=== PATIENT | female | born 1955 | race African-American/Black ===

== ENCOUNTER 2020-09-11 10:17 | Emergency (ER) | payer MEDICARE ==
[2020-09-11] MEDS ORDERED: Ketorolac Tromethamine 30 MG/ML VIAL ONE (10:40)
--- NOTE | 2020-09-11 17:39 | CT ---
CT OF THE LUMBAR SPINE 09/11/20 Comparison is made with plain films of the lumbar spine dated 08/20/20. Comparing those with the scou t view today shows that the compression fracture of the L1 vertebral body has flattened further. It i s reduced in height anteriorly now by about 50%. No new fractures were seen otherwise at other levels . There are no areas of bony destruction. Mild concentric bulging of the L4-L5 and L5-S1 discs are no marisol. There does not appear to be significant central canal stenosis at any level. No foraminal stenos is of concern was found. Facet joints look remarkably good for age. IMPRESSION: Anterior compression of L1 vertebral body that has compressed slightly more since the 08/20 study. Findings discussed with Dr. Oconnor at 07/25 on 09/11/20. POS: HOME
== END 2020-09-11 11:38 | disposition home or self-care (01) ==
LOC: BURERS 10:17
DX: S32.019A Unspecified fracture of first lumbar vertebra, initial encounter for closed fracture (principal); K21.9 Gastro-esophageal reflux disease without esophagitis; I10 Essential (primary) hypertension; G47.30 Sleep apnea, unspecified; E78.5 Hyperlipidemia, unspecified; F17.220 Nicotine dependence, chewing tobacco, uncomplicated; Z79.899 Other long term (current) drug therapy; W01.0XXA Fall on same level from slipping, tripping and stumbling without subsequent striking against object, initial encounter
CPT/HCPCS: 72131; 96372; J1885

== ENCOUNTER 2020-12-27 11:33 | Emergency (ER) | payer MEDICARE ==
[2020-12-27 12:18] LABS: #Eosinphils 0.1 thou/uL (0.0-0.7); #Lymphocytes 1.3 thou/uL (1.20-3.40); #Monocytes 0.6 thou/uL (0.11-0.59); #Neutrophils 2.9 thou/uL (1.40-6.50); %Basophils 0.5 % (0.0-1.0); %Eosinophils 1.9 % (0.0-10.0); %Lymphocytes 26.3 % (21.0-51.0); %Monocytes 11.7 % (0.0-10.0); %Neutrophils 59.6 % (42.0-75.0); Hemoglobin 12.2 g/dL (12.0-16.0); Mean Corpuscular HGB CONC 31.2 g/dL (32.0-36.0); Mean Platelet Volume 7.5 fL (7.4-10.4); Platelet Count 257 thou/uL (130-400); RBC Distribution Width 16.8 % (11.5-14.5); Red Blood Cell (RBC) Count 3.68 mill/uL (4.20-5.40); White Blood Cell (WBC) Count 4.9 thou/uL (4.8-10.8)
[2020-12-27 12:19] LABS: MDiff Complete? YES
[2020-12-27 12:30] LABS: ALT (SGPT) 15 U/L (8-55); AST (SGOT) 37 U/L (5-34); Alkaline Phosphatase 94 U/L (40-110); Anion Gap 16 mmol/L (10-20); BUN (Urea Nitrogen) 14 mg/dL (9.8-20.1); Bilirubin, Total 0.6 mg/dL (0.2-1.2); Calc. Creatinine Clearance 0 mL/min (70-130); Calcium 10.2 mg/dL (7.8-10.44); Carbon Dioxide 25 mmol/L (23-31); Chloride 106 mmol/L (98-107); Globulin 3.5 g/dL (2.4-3.5); Glucose 100 mg/dL (80-115); Magnesium 1.7 mg/dL (1.6-2.6); Potassium 3.4 mmol/L (3.5-5.1); Protein, Total 7.5 g/dL (5.8-8.1); Sodium 144 mmol/L (136-145)
[2020-12-27 12:31] LABS: Acetaminophen Less than 6.0 mcg/mL (10.0-30.0); Alcohol Less than 10 mg/dL (Less than 10); Salicylate Less than 8.0 mg/dL (15.0-30.0)
[2020-12-27 12:54] LABS: Bilirubin Small (Negative); Blood, Urine Negative (Negative); Clarity Cloudy (Clear); Glucose, Urine (Dipstick) Negative (Negative); Ketone, Urine Trace mg/dL (Negative); Leukocyte Negative (Negative); Nitrite Positive (Negative); Protein, Urine (Dipstick) Trace mg/dL (Neg-Trace); pH, Urine 5.5 (5.0-9.0)
[2020-12-27 12:57] LABS: Bacteria/HPF 4+ HPF (None Seen); RBC/HPF 0-3 HPF (0-3); WBC/HPF 0-3 HPF (0-3)
[2020-12-27 13:03] LABS: Amphetamine Not Detected (NotDetected); Barbiturates Screen Not Detected (NotDetected); Benzodiazepine Screen Detected (NotDetected); Cocaine Metabolite Screen Not Detected (NotDetected); Medtox Control Line Valid? VALID (VALID); Methadone Not Detected (NotDetected); Methamphetamine Not Detected (NotDetected); Opiate Screen Not Detected (NotDetected); Oxycodone Screen Not Detected (NotDetected); Phencyclidine (PCP) Not Detected (NotDetected); THC/Cannabinoid Screen Not Detected (NotDetected); Tricyclic Screen Not Detected (NotDetected)
[2020-12-27] MEDS ORDERED: Nitrofurantoin Monohyd/M-Cryst 100 MG CAP ONE (13:28)
== END 2020-12-27 13:30 | disposition home or self-care (01) ==
LOC: BURERS 11:33
DX: N39.0 Urinary tract infection, site not specified (principal); K21.9 Gastro-esophageal reflux disease without esophagitis; E78.2 Mixed hyperlipidemia; I10 Essential (primary) hypertension; F17.220 Nicotine dependence, chewing tobacco, uncomplicated; Z79.899 Other long term (current) drug therapy
CPT/HCPCS: 36415; 71045; 80053; 80306; 80307; 81003; 81015; 83605; 83735; 84443; 84484; 85025; 87040; 87077; 87086; 87186; 93005; 94760

== ENCOUNTER 2021-03-14 08:28 | Emergency (ER) | payer MEDICARE ==
[2021-03-14 09:45] LABS: Bilirubin Negative (Negative); Blood, Urine Negative (Negative); Clarity Clear (Clear); Glucose, Urine (Dipstick) Negative (Negative); Ketone, Urine Negative (Negative); Leukocyte Negative (Negative); Nitrite Negative (Negative); Protein, Urine (Dipstick) Negative (Neg-Trace); Urobilinogen 0.2 mg/dL (Less than 2)
== END 2021-03-14 10:00 | disposition home or self-care (01) ==
LOC: BURERS 08:28
DX: S32.059A Unspecified fracture of fifth lumbar vertebra, initial encounter for closed fracture (principal); S32.019A Unspecified fracture of first lumbar vertebra, initial encounter for closed fracture; K21.9 Gastro-esophageal reflux disease without esophagitis; E78.2 Mixed hyperlipidemia; I10 Essential (primary) hypertension; F17.220 Nicotine dependence, chewing tobacco, uncomplicated; F17.290 Nicotine dependence, other tobacco product, uncomplicated; Z79.899 Other long term (current) drug therapy; Z79.82 Long term (current) use of aspirin; W18.30XA Fall on same level, unspecified, initial encounter
CPT/HCPCS: 72100; 81003

== ENCOUNTER 2021-04-22 10:16 | Outpatient (CLI) | payer MEDICARE | END 2021-04-22 10:17 | disposition home or self-care (01) | LOC: BURRAD 10:16 | PROVIDERS: ATTEND Surgery | DX: S32.059D Unspecified fracture of fifth lumbar vertebra, subsequent encounter for fracture with routine healing (principal); S32.019D Unspecified fracture of first lumbar vertebra, subsequent encounter for fracture with routine healing; K59.00 Constipation, unspecified | CPT/HCPCS: 72100 ==

== ENCOUNTER 2021-04-27 17:52 | Emergency (ER) | payer MEDICARE ==
[2021-04-27] MEDS ORDERED: Diazepam 10 MG/2 ML SYRINGE ONE ×5 (18:36→21:05)
[2021-04-27 18:47] LABS: #Eosinphils 0.1 thou/uL (0.0-0.7); #Lymphocytes 1.5 thou/uL (1.20-3.40); #Monocytes 0.7 thou/uL (0.11-0.59); #Neutrophils 6.3 thou/uL (1.40-6.50); %Basophils 0.5 % (0.0-1.0); %Eosinophils 0.6 % (0.0-10.0); %Lymphocytes 17.7 % (21.0-51.0); %Monocytes 7.6 % (0.0-10.0); %Neutrophils 73.6 % (42.0-75.0); Hemoglobin 12.7 g/dL (12.0-16.0); Mean Corpuscular HGB CONC 32.9 g/dL (32.0-36.0); Mean Corpuscular Hemoglobin 32.6 pg (27.0-31.0); Mean Corpuscular Volume 99.1 fL (78.0-98.0); Mean Platelet Volume 6.6 fL (7.4-10.4); Platelet Count 236 thou/uL (130-400); RBC Distribution Width 15.8 % (11.5-14.5); Red Blood Cell (RBC) Count 3.89 mill/uL (4.20-5.40); White Blood Cell (WBC) Count 8.6 thou/uL (4.8-10.8)
[2021-04-27 19:03] LABS: ALT (SGPT) 13 U/L (8-55); AST (SGOT) 17 U/L (5-34); Albumin 4.3 g/dL (3.4-4.8); Alkaline Phosphatase 82 U/L (40-110); Anion Gap 24 mmol/L (10-20); BUN (Urea Nitrogen) 10 mg/dL (9.8-20.1); Bilirubin, Total 0.6 mg/dL (0.2-1.2); Calc. Creatinine Clearance 0 mL/min (70-130); Calcium 9.7 mg/dL (7.8-10.44); Carbon Dioxide 20 mmol/L (23-31); Chloride 102 mmol/L (98-107); Globulin 3.9 g/dL (2.4-3.5); Glucose 104 mg/dL (80-115); Potassium 3.5 mmol/L (3.5-5.1); Protein, Total 8.2 g/dL (5.8-8.1); Sodium 142 mmol/L (136-145)
[2021-04-27 19:04] LABS: Acetaminophen Less than 6.0 mcg/mL (10.0-30.0); Alcohol Less than 10 mg/dL (Less than 10); Magnesium 1.4 mg/dL (1.6-2.6); Salicylate Less than 8.0 mg/dL (15.0-30.0)
[2021-04-27 19:06] LABS: Bilirubin Negative (Negative); Blood, Urine Negative (Negative); Clarity Clear (Clear); Glucose, Urine (Dipstick) Negative (Negative); Ketone, Urine Trace mg/dL (Negative); Leukocyte Negative (Negative); Nitrite Negative (Negative); Protein, Urine (Dipstick) Negative (Neg-Trace); Urobilinogen 0.2 mg/dL (Less than 2)
[2021-04-27] MEDS ORDERED: Folic Acid 1 MG TAB PO SCH (19:30)
[2021-04-27] MEDS ORDERED: Thiamine 100 MG TAB PO SCH (19:30)
[2021-04-27 19:47] LABS: Amphetamine Not Detected (NotDetected); Barbiturates Screen Not Detected (NotDetected); Benzodiazepine Screen Not Detected (NotDetected); Cocaine Metabolite Screen Not Detected (NotDetected); Methadone Not Detected (NotDetected); Methamphetamine Not Detected (NotDetected); Opiate Screen Not Detected (NotDetected); Oxycodone Screen Not Detected (NotDetected); Phencyclidine (PCP) Not Detected (NotDetected); THC/Cannabinoid Screen Not Detected (NotDetected); Tricyclic Screen Not Detected (NotDetected)
[2021-04-27 19:48] LABS: Medtox Control Line Valid? VALID (VALID)
== END 2021-04-27 21:25 | disposition short-term general hospital (02) ==
LOC: BURERS 17:52
DX: F10.239 Alcohol dependence with withdrawal, unspecified (principal); R00.0 Tachycardia, unspecified; I10 Essential (primary) hypertension; K21.9 Gastro-esophageal reflux disease without esophagitis; E78.5 Hyperlipidemia, unspecified; E78.00 Pure hypercholesterolemia, unspecified; G62.9 Polyneuropathy, unspecified; F17.220 Nicotine dependence, chewing tobacco, uncomplicated; Z79.899 Other long term (current) drug therapy
CPT/HCPCS: 80053; 80306; 80307; 81003; 83735; 85025; 93005; 96374; 96376; J3360

== ENCOUNTER 2021-06-05 09:57 | Outpatient (CLI) | payer MEDICARE | END 2021-06-05 09:58 | disposition home or self-care (01) | LOC: BURRAD 09:57 | PROVIDERS: ATTEND Surgery | DX: S32.059D Unspecified fracture of fifth lumbar vertebra, subsequent encounter for fracture with routine healing (principal); S32.019D Unspecified fracture of first lumbar vertebra, subsequent encounter for fracture with routine healing | CPT/HCPCS: 72100 ==

== ENCOUNTER 2022-01-26 15:44 | Emergency (ER) | payer MEDICARE ==
[2022-01-26] MEDS ORDERED: Iopamidol 370 76% 100 ML VIAL FS ONE (15:45)
[2022-01-26] MEDS ORDERED: Ondansetron PF 4 MG/2 ML Vial ONE (16:29)
[2022-01-26] MEDS ORDERED: Pantoprazole 40 MG VIAL ONE (16:29)
[2022-01-26 16:38] LABS: #Lymphocytes 0.6 thou/uL (1.20-3.40); #Monocytes 0.3 thou/uL (0.11-0.59); #Neutrophils 6.3 thou/uL (1.40-6.50); %Basophils 0.3 % (0.0-1.0); %Lymphocytes 8.4 % (21.0-51.0); %Monocytes 3.8 % (0.0-10.0); %Neutrophils 87.5 % (42.0-75.0); Hemoglobin 11.7 g/dL (12.0-16.0); MDiff Complete? YES; Mean Corpuscular HGB CONC 33.7 g/dL (32.0-36.0); Mean Corpuscular Hemoglobin 34.5 pg (27.0-31.0); Mean Platelet Volume 5.6 fL (7.4-10.4); Platelet Count 232 thou/uL (130-400); White Blood Cell (WBC) Count 7.2 thou/uL (4.8-10.8)
[2022-01-26 16:44] LABS: Bilirubin Moderate (Negative); Blood, Urine Negative (Negative); Clarity Cloudy (Clear); Glucose, Urine (Dipstick) Negative (Negative); Ketone, Urine Trace mg/dL (Negative); Leukocyte Negative (Negative); Nitrite Negative (Negative); Protein, Urine (Dipstick) 30 mg/dL (Neg-Trace); pH, Urine 8.5 (5.0-9.0)
[2022-01-26 16:53] LABS: Bacteria/HPF 2+ HPF (None Seen); Mucous/LPF 2+ LPF (<2+); RBC/HPF 0-3 HPF (0-3); WBC/HPF 0-3 HPF (0-3)
[2022-01-26 17:11] LABS: ALT (SGPT) 24 U/L (8-55); AST (SGOT) 50 U/L (5-34); Albumin 3.7 g/dL (3.4-4.8); Alkaline Phosphatase 99 U/L (40-110); Anion Gap 18 mmol/L (10-20); BUN (Urea Nitrogen) 13 mg/dL (9.8-20.1); Bilirubin, Total 0.5 mg/dL (0.2-1.2); Calc. Creatinine Clearance 0 mL/min (70-130); Calcium 9.3 mg/dL (7.8-10.44); Carbon Dioxide 31 mmol/L (23-31); Chloride 96 mmol/L (98-107); Globulin 2.2 g/dL (2.4-3.5); Glucose 152 mg/dL (80-115); Lipase 1844 U/L (8-78); Protein, Total 5.9 g/dL (5.8-8.1); Sodium 142 mmol/L (136-145)
[2022-01-26 17:16] LABS: Potassium 2.7 mmol/L (3.5-5.1)
[2022-01-26] MEDS ORDERED: Potassium Chloride 20 MEQ/100 ML PREMIX BAG ONE ×2 (17:42→19:18)
[2022-01-26 18:41] LABS: SARS-CoV-2 NAA Rapid Test Not Detected (NotDetected)
[2022-01-26] MEDS ORDERED: Fentanyl 100 MCG/2 ML VIAL ONE (19:44)
== END 2022-01-26 21:13 | disposition short-term general hospital (02) ==
LOC: BURERS 15:44
DX: K85.90 Acute pancreatitis without necrosis or infection, unspecified (principal); E87.6 Hypokalemia; I10 Essential (primary) hypertension; E78.2 Mixed hyperlipidemia; K21.9 Gastro-esophageal reflux disease without esophagitis; F17.220 Nicotine dependence, chewing tobacco, uncomplicated; Z20.822 Contact with and (suspected) exposure to COVID-19; Z79.82 Long term (current) use of aspirin; Z79.899 Other long term (current) drug therapy
CPT/HCPCS: 74177; 80053; 81003; 81015; 83605; 83690; 84484; 85025; 93005; 96361; 96365; 96366; 96375; C9113; J2405; J3010; J3480; Q9967; U0002

== ENCOUNTER 2024-01-27 07:29 | Emergency (ER) | payer MEDICARE ==
[2024-01-27] MEDS ORDERED: Ondansetron PF 4 MG/2 ML Vial ONE (08:01)
[2024-01-27] MEDS ORDERED: Morphine 4 MG/ML VIAL ONE (08:01)
[2024-01-27 08:03] LABS: #Basophils 0.1 thou/uL (0.0-0.2); #Lymphocytes 1.1 thou/uL (1.20-3.40); #Monocytes 0.5 thou/uL (0.11-0.59); #Neutrophils 6.3 thou/uL (1.40-6.50); %Basophils 0.8 % (0.0-1.0); %Eosinophils 0.3 % (0.0-10.0); %Lymphocytes 13.4 % (21.0-51.0); %Monocytes 6.6 % (0.0-10.0); Hematocrit 37.7 % (36.0-47.0); Hemoglobin 12.5 g/dL (12.0-16.0); Mean Corpuscular HGB CONC 33.1 g/dL (32.0-36.0); Mean Corpuscular Hemoglobin 32.5 pg (27.0-31.0); Mean Platelet Volume 6.4 fL (7.4-10.4); Platelet Count 277 10x3/uL (130-400); RBC Distribution Width 12.4 % (11.5-14.5); Red Blood Cell (RBC) Count 3.84 mill/uL (4.20-5.40)
[2024-01-27 08:13] LABS: PTT 32.5 sec (22.9-36.1); Prothrombin Time 13.1 sec (12.0-14.7)
[2024-01-27 08:19] LABS: Bilirubin Large (Negative); Blood, Urine Negative (Negative); Clarity Slightly Cloudy (Clear); Glucose, Urine (Dipstick) Negative (Negative); Ketone, Urine 40 mg/dL (Negative); Leukocyte Negative (Negative); Nitrite Negative (Negative); Protein, Urine (Dipstick) Negative (Neg-Trace); Urobilinogen 0.2 mg/dL (Less than 2); pH, Urine 5.5 (5.0-9.0)
[2024-01-27 08:20] LABS: ALT (SGPT) 59 U/L (8-55); AST (SGOT) 64 U/L (5-34); Alkaline Phosphatase 100 U/L (40-110); Anion Gap 23 mmol/L (10-20); BUN (Urea Nitrogen) 22 mg/dL (9.8-20.1); Bilirubin, Total 0.6 mg/dL (0.2-1.2); Calc. Creatinine Clearance 0 mL/min (70-130); Calcium 9.5 mg/dL (7.8-10.44); Carbon Dioxide 15 mmol/L (23-31); Chloride 96 mmol/L (98-107); Estimated GFR 51; Globulin 3.6 g/dL (2.4-3.5); Glucose 105 mg/dL (80-115); Lipase 535 U/L (8-78); Potassium 5.3 mmol/L (3.5-5.1); Protein, Total 7.6 g/dL (5.8-8.1); Sodium 129 mmol/L (136-145)
[2024-01-27 08:26] LABS: Bacteria/HPF 4+ HPF (None Seen); CAUTI Indications for Culture Acute Hematuria; RBC/HPF None Seen HPF (0-3); Squamous Epithelial 21-50 HPF (0-3); WBC/HPF None Seen HPF (0-3)
[2024-01-27 08:28] LABS: Urine Culture Reflex No No
[2024-01-27 09:05] LABS: Base Excess-Venous -7.4 mmol/L (-2.0 to 3.0); Bicarbonate (HCO3v) 17.5 mmol/L (22.0-28.0); CO2 Tension (PvCO2) 32.8 mmHg (42.0-51.0); Calcium, Ionized 1.11 mmol/L (1.15-1.33); Chloride 97 mmol/L (98-107); Hemoglobin - Calc 11.9 g/dL (12.0-16.0); Potassium 6.2 mmol/L (3.5-5.1); Sodium 126 mmol/L (138-145); T. Carbon Dioxide 18.5 mmol/L (22.0-28.0); vO2 Saturation-calc 90.4 % (60.0-85.0)
[2024-01-27] MEDS ORDERED: Iopamidol 370 76% 100 ML VIAL ONE (10:36)
== END 2024-01-27 10:55 | disposition short-term general hospital (02) ==
LOC: BURERS 07:29
DX: K85.90 Acute pancreatitis without necrosis or infection, unspecified (principal); I10 Essential (primary) hypertension; F17.290 Nicotine dependence, other tobacco product, uncomplicated
CPT/HCPCS: 74177; 80053; 81001; 82330; 82803; 83605; 83690; 84484; 85025; 85610; 85730; 93005; 96361; 96374; 96375; J2270; J2405; Q9967

== ENCOUNTER 2024-07-24 15:03 | Emergency (ER) | payer MEDICARE ==
[~2024-07-24 15:03] MED LIST: Iopamidol 370 76% 100 ML VIAL ONE
[2024-07-24] MEDS ORDERED: Ondansetron PF 4 MG/2 ML Vial ONE (15:15)
[2024-07-24] MEDS ORDERED: Morphine 4 MG/ML VIAL ONE (15:15)
[2024-07-24] MEDS ORDERED: Diazepam 10 MG/2 ML SYRINGE ONE (15:20)
[2024-07-24 15:26] LABS: #Eosinophils 0.1 thou/uL (0.0-0.7); #Lymphocytes 1.2 thou/uL (1.20-3.40); #Monocytes 0.6 thou/uL (0.11-0.59); #Neutrophils 3.2 thou/uL (1.40-6.50); %Basophils 0.8 % (0.0-1.0); %Eosinophils 1.1 % (0.0-10.0); %Monocytes 11.3 % (0.0-10.0); %Neutrophils 63.9 % (42.0-75.0); Hematocrit 35.3 % (36.0-47.0); Hemoglobin 11.6 g/dL (12.0-16.0); Mean Corpuscular HGB CONC 32.9 g/dL (32.0-36.0); Mean Corpuscular Hemoglobin 33.1 pg (27.0-31.0); Mean Platelet Volume 5.9 fL (7.4-10.4); Platelet Count 238 10x3/uL (130-400); RBC Distribution Width 11.1 % (11.5-14.5); Red Blood Cell (RBC) Count 3.51 mill/uL (4.20-5.40); White Blood Cell (WBC) Count 5.1 10x3/uL (4.8-10.8)
[2024-07-24 15:52] LABS: ALT (SGPT) 54 U/L (8-55); AST (SGOT) 105 U/L (5-34); Albumin 3.2 g/dL (3.4-4.8); Alkaline Phosphatase 132 U/L (40-110); Anion Gap 18 mmol/L (10-20); BUN (Urea Nitrogen) 13 mg/dL (9.8-20.1); Bilirubin, Total 0.6 mg/dL (0.2-1.2); Calc. Creatinine Clearance 0 mL/min (70-130); Calcium 9.6 mg/dL (7.8-10.44); Carbon Dioxide 23 mmol/L (23-31); Chloride 96 mmol/L (98-107); Estimated GFR 77; Glucose 154 mg/dL (80-115); Lipase 1289 U/L (8-78); Potassium 3.5 mmol/L (3.5-5.1); Protein, Total 7.2 g/dL (5.8-8.1); Sodium 133 mmol/L (136-145)
[2024-07-24 20:48] LABS: Bilirubin Small (Negative); Blood, Urine Negative (Negative); Clarity Clear (Clear); Glucose, Urine (Dipstick) Negative (Negative); Ketone, Urine 15 mg/dL (Negative); Leukocyte Negative (Negative); Nitrite Negative (Negative); Protein, Urine (Dipstick) Trace mg/dL (Neg-Trace)
[2024-07-24 20:53] LABS: Bacteria/HPF Rare-Few HPF (None Seen); CAUTI Indications for Culture Pelvic or flank pain; RBC/HPF 0-3 HPF (0-3); Squamous Epithelial 0-3 HPF (0-3); WBC/HPF 0-3 HPF (0-3)
[2024-07-24 20:54] LABS: Urine Culture Reflex No No
== END 2024-07-24 20:40 | disposition short-term general hospital (02) ==
LOC: BURERS 15:03
DX: K85.90 Acute pancreatitis without necrosis or infection, unspecified (principal); F10.20 Alcohol dependence, uncomplicated; I10 Essential (primary) hypertension; F17.200 Nicotine dependence, unspecified, uncomplicated; Z55.6 Problems related to health literacy
CPT/HCPCS: 74177; 80053; 81001; 83690; 85025; 93005; J2272; J2405; J3360; Q9967; 96361; 96374; 96375